=== PATIENT | female | born 1940 | race Caucasian/White ===

== ENCOUNTER 2020-04-13 10:33 | Outpatient (REF) | payer MEDICARE, SELFPAY ==
[2020-04-13 14:41] LABS: Thyroid Stimulating Hormone 3.29 mIU/mL (0.32-4.0)
== END 2020-04-13 10:34 | disposition home or self-care (01) ==
LOC: HO.MAMMO 10:33
PROVIDERS: PCP Internal Medicine; Visit Provider Internal Medicine
DX: E03.9 Hypothyroidism, unspecified (principal)
CPT/HCPCS: 84443

== ENCOUNTER 2020-07-30 08:51 | Outpatient (REF) | payer MEDICARE, SELFPAY ==
[2020-07-30 11:22] LABS: MANUAL DIFF FLAG NO
[2020-07-30 11:32] LABS: Glucose Urine UA NEG (NEG); Leukocyte Esterase Urine 1+ (NEG); Nitrite Urine NEG (NEG); PH 5.5 (5.0-8.0); Specific Gravity - Urine 1.015 (1.005-1.025); Urine Blood TRACE (NEG); Urine Ketones NEG (NEG); Urine Protein NEG (NEG-TRACE)
[2020-07-30 11:34] LABS: Appearance Urine HAZY; Color Urine STRAW
[2020-07-30 11:35] LABS: Basophils Percent Auto 0.3 % (0-2); Eosinophils Absolute Auto 0.2 X10*3/uL (0.0-0.4); Eosinophils Percent Auto 2.6 % (0-4); Hematocrit 36.8 % (37-47); Hemoglobin 12.4 g/dl (12.0-16.0); Imm Gran Abs Auto 0.02 X10*3/uL (0.00-0.03); Imm Gran Pct Auto 0.3 % (0.0-0.4); Lymphocytes Absolute Auto 1.9 X10*3/uL (1.2-4.9); Mean Corpuscular HGB Conc 33.7 g/dl (31.0-35.0); Mean Corpuscular Hemoglobin 32.4 pg (27.0-33.0); Mean Corpuscular Volume 96.1 fL (80-98); Mean Platelet Volume 12.1 fL (9.4-12.3); Monocytes Absolute Auto 0.6 X10*3/uL (0.1-1.2); Monocytes Percent Auto 8.9 % (2-11); Neutrophils Absolute Auto 4.3 X10*3/uL (2.0-8.3); Neutrophils Percent Auto 60.9 % (45-73); Platelet Count 192 X10*3/uL (160-400); Red Blood Count 3.83 X10*6/uL (4.20-5.50)
[2020-07-30 12:09] LABS: Alanine Aminotransferase < 6 U/L (0-31); Albumin Level 4.4 g/dL (3.5-5.0); Alkaline Phosphatase 80 U/L (39-117); Anion Gap 15 (12-20); Aspartate Amino Transferase 12 U/L (5-31); Bacteria Urine TRACE /LPF; Bilirubin Total 0.4 mg/dL (0.0-1.0); Blood Urea Nitrogen 33 mg/dL (9-16); Calcium 9.4 mg/dL (8.4-10.2); Carbon Dioxide 25 mmol/L (22-29); Chloride 104 mmol/L (96-108); Cholesterol 215 mg/dL; Estimated Glomerular Filt Rate 42; Glucose Fasting 102 mg/dL (60-99); HDL Cholesterol 48 mg/dL; LDL Cholesterol Calculated 144 mg/dl; Potassium 4.6 mmol/L (3.3-5.1); RBC Urine 0-2 /HPF (0); Sodium 139 mmol/L (135-145); Squamous Epithelial Cell Urine 4+ /LPF; Total Protein 7.8 g/dL (6.5-8.0); Triglycerides 117 mg/dL
[2020-07-30 12:18] LABS: Thyroid Stimulating Hormone 3.79 uIU/mL (0.32-4.0); Vitamin D 25-OH Total 48.6 ng/mL (>30)
== END 2020-07-30 08:52 | disposition home or self-care (01) ==
LOC: HO.WFDLDS 08:51
PROVIDERS: Visit Provider Internal Medicine
DX: E03.9 Hypothyroidism, unspecified (principal); R73.03 Prediabetes; I10 Essential (primary) hypertension; R79.89 Other specified abnormal findings of blood chemistry
CPT/HCPCS: 36415; 80053; 80061; 81001; 82306; 84443; 85025

== ENCOUNTER 2020-09-29 08:41 | Outpatient (REF) | payer MEDICARE, SELFPAY ==
[2020-09-29 11:14] LABS: Anion Gap 14 (12-20); Blood Urea Nitrogen 19 mg/dL (9-16); Calcium 8.4 mg/dL (8.4-10.2); Carbon Dioxide 29 mmol/L (22-29); Chloride 103 mmol/L (96-108); Estimated Glomerular Filt Rate 55; Phosphorus 3.2 mg/dL (2.7-4.5); Potassium 3.6 mmol/L (3.3-5.1); Sodium 142 mmol/L (135-145)
[2020-09-29 11:37] LABS: Glucose Urine UA NEG (NEG); Leukocyte Esterase Urine TRACE (NEG); Nitrite Urine NEG (NEG); PH 5.5 (5.0-8.0); UACC Culture Trigger YES; Urine Blood 1+ (NEG); Urine Ketones NEG (NEG); Urine Protein TRACE MG/DL (NEG-TRACE)
[2020-09-29 11:38] LABS: Renal w Reflex Lab Use Only Order verified
[2020-09-29 11:44] LABS: Appearance Urine HAZY; Color Urine YELLOW
[2020-09-29 12:01] LABS: Creatinine Urine 126.79 mg/dL; Microalbum/Creatinine Ratio Ur 89.1 ug/mg cr
[2020-09-29 12:20] LABS: Bacteria Urine 1+ /LPF; RBC Urine 0-2 /HPF (0); Squamous Epithelial Cell Urine 2+ /LPF; Uric Acid Crystals Urine 2+ /LPF
== END 2020-09-29 08:42 | disposition home or self-care (01) ==
LOC: HO.WFDLDS 08:41
PROVIDERS: Visit Provider Internal Medicine Nephrology
DX: I10 Essential (primary) hypertension (principal)
CPT/HCPCS: 36415; 80051; 81001; 81003; 82043; 82310; 82565; 84100; 84520; 87086

== ENCOUNTER 2020-10-23 08:54 | Outpatient (REF) | payer MEDICARE, SELFPAY ==
--- NOTE | ~2020-10-23 | MM_ITS ---
EXAMINATION: MM SCREENING DIGITAL BREAST TOMOSYNTHESIS, BILATERAL CLINICAL INFORMATION: Screening. Asymptomatic. Left breast cancer 2008. COMPARISON: Mammography: 02/06/2019, 01/22/2018, 01/20/2017 TECHNIQUE: Digital breast tomosynthesis is performed in both the craniocaudal and mediolateral oblique views along with computer-aided detection (CAD). Synthesized 2D images are generated from the tomosynthesis. FINDINGS: The breasts are heterogeneously dense, which may obscure small masses (ACR BI-RADS breast composition Category c). There is fine fibronodular parenchymal pattern. Parenchyma appears similar to prior studies. There are postsurgical changes again noted on left with reduced breast size left axillary clips and minor scarring. Neither breast shows interval mass or architectural abnormality or abnormal calcifications. There are scattered bilateral round and coarse and vascular calcifications again seen. No significant changes. MM/MM tomosynthesis screening BI IMPRESSION: No significant changes from prior studies. ASSESSMENT: BI-RADS 2: Benign RECOMMENDATION: Routine annual mammography screening. This patient's information was entered into a reminder system with a target due date for their next mammogram.
== END 2020-10-23 08:55 | disposition home or self-care (01) ==
LOC: HO.MAMMO 08:54
PROVIDERS: PCP Internal Medicine; Visit Provider Internal Medicine
DX: Z12.31 Encounter for screening mammogram for malignant neoplasm of breast (principal)
CPT/HCPCS: 77063; 77067

== ENCOUNTER 2021-03-24 15:53 | Emergency (ER) | payer MEDICARE, SELFPAY ==
[2021-03-24] VITALS (8 sets, daily range): BP systolic 161–200; BP diastolic 69–114; PULSE 64–85; RESP 16–18; TEMP 37.1; O2SAT 96–97; BMI 35.7
--- NOTE | ~2021-03-24 | XR_ITS ---
Indication: Trauma with back and hip pain EXAMINATION: Single view pelvis with 2 detailed views of the left hip. 3 views of the lumbar sacral spine. Views of the lumbar sacral spine show grade 1 anterolisthesis of L4 on L5. Loss of disc height at L4-L5. Degenerative changes in the posterior elements in the mid to lower lumbar region. Mild scoliosis convex right apex at L3. No acute compression injury. The single view of the pelvis demonstrates the SI joints to be patent. The femoral head contours are fairly smooth. The detailed imaging of the left hip shows degeneration along the greater trochanter. There is some joint space loss in the left hip but the femoral head contour is smooth. No acute fracture or dislocation. XR/XR lumbar spine 2-3V IMPRESSION: No acute finding. Moderate degeneration in the lumbar sacral spine. Degenerative change in left hip.
--- NOTE | ~2021-03-24 | XR_ITS ---
Indication: Trauma with back and hip pain EXAMINATION: Single view pelvis with 2 detailed views of the left hip. 3 views of the lumbar sacral spine. Views of the lumbar sacral spine show grade 1 anterolisthesis of L4 on L5. Loss of disc height at L4-L5. Degenerative changes in the posterior elements in the mid to lower lumbar region. Mild scoliosis convex right apex at L3. No acute compression injury. The single view of the pelvis demonstrates the SI joints to be patent. The femoral head contours are fairly smooth. The detailed imaging of the left hip shows degeneration along the greater trochanter. There is some joint space loss in the left hip but the femoral head contour is smooth. No acute fracture or dislocation. XR/XR hip LT w PEL1V IMPRESSION: No acute finding. Moderate degeneration in the lumbar sacral spine. Degenerative change in left hip.
--- NOTE | 2021-03-24 16:31 | ED_ITS ---
HPI - Back Pain/Injury General Chief Complaint: Back Pain/Injury Stated Complaint: back pain Time Seen by Provider: 03/24/21 16:10 Source: patient, family ( at bedside) and EMS Mode of arrival: EMS Limitations: no limitations History of Present Illness HPI Narrative: 80-year-old female with a past medical history of breast cancer receive radiation and chemo and lumpectomy and has been in remission, hyperten hailee, hypothyroidism and GERD presenting to the ED with complaints of atraumatic left lower back pain/left hip pain/buttocks pain that radiates to her left leg that started approximately 5-6 days ago after she took a shower. She reports that she does not believe she has had any injuries. She reports she might move faster than normal while going into the shower. She describes it as just a pain that suppresses her comes on suddenly with certain movements. She reports when the pain comes on suddenly she gets intermittent nausea. She reports it is worse with palpation or certain movements. She reports it is intermittent in nature. She was seen at an urgent care on 03/22/2021 and given Motrin and Tylenol. She reports she was just treated for gout to the left foot. She denies any falls or injuries that she can recall. She denies any fevers, chills, dizziness, headaches, change in vision, chest pain, shortness of breath, dyspnea on exertion, orthopnea, palpitations, abdominal pain, dysuria, hematuria, diarrhea or constipation, black or bloody stools, urinary incontinence or retention, inability to walk, or any other symptoms complaints or concerns at this time MD elicited complaint: back pain Pertinent past history: arthritis (Gout arthritis) Onset (ago): day(s) (5-6 days) Timing: intermittent Severity: moderate Similar Symptoms Previously: No Quality: other (She describes it as pain that surprises her) Location: left lower back (/left hip/buttock) Radiation: left upper leg Exacerbating factors: other (Certain movements and palpation to the site) Relieving factors: none Context: turning/twisting and bending Associated symptoms: denies other symptoms Treatments prior to arrival: other (Indomethacin and no symptomatic relief) Work related injury: No Related Data Home Medications Medication Instructions Recorded Confirmed amlodipine 2.5 mg tablet 2.5 mg PO DAILY 03/22/21 cholecalciferol (vitamin D3) 50 50 mcg PO DAILY 03/22/21 mcg (2,000 unit) capsule indomethacin 50 mg capsule 50 mg PO TID 03/22/21 levothyroxine 50 mcg tablet 50 mcg PO QAM 03/22/21 (Synthroid) lorazepam 0.5 mg tablet 0.5 mg PO DAILY PRN 03/22/21 losartan 100 mg tablet 100 mg PO DAILY 03/22/21 metoprolol succinate 25 mg 25 mg PO DAILY 03/22/21 tablet,extended release 24 hr omeprazole 20 mg capsule,delayed 20 mg PO DAILY 03/22/21 release Previous Rx's Medication Instructions Recorded cyclobenzaprine 10 mg tablet 10 mg PO BID PRN 10 Days #30 tab 03/22/21 cyclobenzaprine 10 mg tablet 10 mg PO Q8H #14 tab 03/24/21 lidocaine 5 % topical patch 1 patch TOPICAL DAILY #15 ea 03/24/21 (Lidoderm) Allergies Allergy/AdvReac Type Severity Reaction Status Date / Time No Known Allergies Allergy Mild NONE Verified 03/22/21 14:16 amoxicillin Allergy Unknown rash Uncoded 02/04/20 00:00 Bistolic AdvReac Unknown chest Uncoded 02/04/20 00:00 tightness Review of Systems Review of Systems: Constitutional : No trauma, No Weight loss, No Fever, No Chills, ENT/Mouth : No Hearing loss, No Ear Pain, No Nasal Congestion, No Sinus Pain, No Hoarseness, No sore throat, No Rhinorrhea, No Swallowing Difficulty Cardiovascular : No Chest Pain, No SOB Respiratory : No Cough, No Dyspnea Gastrointestinal : No Nausea, No Vomiting, No Diarrhea, No abdominal Pain, No Hematochezia, No Melena Genitourinary : No Dysuria, No Urinary Frequency, No Hematuria, No Urinary or Bowel Incontinence/retention Musculoskeletal : + Back pain, No neck pain, No joint stiffness, No joint swelling Skin : No Skin Lesions, No rash or signs of infection Neuro : No Weakness, No radiation, No Numbness, No Paresthesias, No headache, no loss of bowel or bladder incontinence, no saddle anesthesia, Focal weakness, No radiation Denies history of IV drug usage. Yes all other systems are reviewed and are negative PMFSH Past Medical History Attestation statement: The following information was validated with the patient. Medical History Breast cancer GERD (gastroesophageal reflux disease) HTN (hypertension) Hypothyroid Surgical History History of colonoscopy (04/2009) History of lumpectomy of left breast (12/20/07) Family History Family History Family/Other Breast cancer, Onset Age: 88 Social History Social History Patient Tobacco Use Status: Former Tobacco user Advance Directives: No Advance Directives Information Provided: Yes Physical Exam Vital Signs: Vital Signs: Last Vital Signs Temp 98.8 F 03/24/21 16:08 Pulse 77 03/24/21 18:26 Resp 16 03/24/21 18:26 BP 170/71 H 03/24/21 18:26 Pulse Ox 97 03/24/21 18:26 Body Mass Index 35.7 vital signs have been reviewed as normal and appeared to be correct. Blood pressure hypertensive 193/88. Heart rate normal. Respiration rate normal. Temperature normal. Oxygen saturation normal. Appearance: Alert. Oriented X3. No acute distress. Head: Normal external exam. Normocephalic. Atraumatic. No Wing signs noted. No raccoon eyes noted Eyes: PERRLA. EOMI. Conjunctiva and sclera normal. Eyelids normal. ENT: EAC normal. TM's Normal. Pharynx normal. Uvula midline. Moist mucous membranes. No trismus noted. No drooling noted. No muffled voice noted. Neck: Normal inspection. Neck supple. FROM. No adenopathy. Thyroid Normal. No meningeal signs. No neck mass noted. CVS: Normal heart rate and rhythm. Heart sound normal. No murmurs noted. Pulses normal throughout. Respiratory: No respiratory distress. Painless inspiration. Breath sounds normal. No wheezes/rales/rhonchi noted. Chest nontender. No accessory muscle usage noted or decreased air movement noted. Abdomen: Soft and nontender. Bowel sounds normal in all 4 quadrants. No distention noted. No organomegaly noted. No visible injury noted. Back: No CVA tenderness. Full range of motion noted. No obvious deformities, or edema. Mild para-spinal muscular tenderness from lumbar region to coccyx. Full ROM in back and lower extremities. 5/5 strength hip extension/flexion, ab duction, adduction. Mild Lumbar pain with hip flexion against resistance. Straight leg raise test negative on right; Straight leg raise test negative on left; Reflexes normal ankle and knee bilaterally; EHL motor strength normal bilaterally. No rashes/lesion/induration/fluctuance or signs infection noted. Skin: Skin warm and dry. Normal skin color. Normal skin turgor. No rashes/lesions/lacerations noted. Extremities: No lower extremity edema. No calf tenderness is noted. Extremities exhibit normal range of motion. Extremities nontender. Neuro: Oriented X 3. No motor deficit. No sensory deficit. Reflexes normal. Patient has a normal steady gait. Course Course Course Narrative: 16:40pm Pt c likely muscular pain, but could be herniated disc. Neuro exam shows no deficits. Not c/w AAA/epidural abscess/dissection. Patient does have a history of breast cancer although she has been in remission for years due to history and atraumatic left lower back pain will obtain an x-ray of lumbar/hip and pelvis x- ray. Provide 5 mg of Flexeril and Lidoderm patch and re-evaluate. No other high risk Hx (Incont, fever, immunosupp, recent surgery/LP, coag, signif trauma, wt loss, puls mass, TB, or IVDU) to warrant MRI/CT today. Not c/w Pyelo/UTI/kidney stone/spinal fx. Not cauda equina syndrome. Reevaluation(s) Reevaluation #1: - patient reports moderate symptomatic relief with the Flexeril and the lidocaine is requesting not to go home with. Although I noted that she had a elevated blood pressure she reports she is currently on 3 blood pressure medications which include losartan, amlodipine and metoprolol although she reports she took losartan and amlodipine should not take the metoprolol today. She reports the blood pressure is usually on the high side. She continues to deny any cardiac related complaints. She is able to ambulate without any difficulties. X-ray obtained of lumbar spine and left hip revealed degenerative changes otherwise no other acute processes. - therefore at this time will obtain an EKG. Provide 100 mg of p.o. labetalol then re-evaluate still awaiting UA at this time. Although patient denies any urinary related complaints. Will re-evaluate. Time: 17:45 Reevaluation #2: - UA revealed +1 protein and +1 blood it appears that patient always has blood in her urine otherwise no evidence of UTI. Patient's blood pressure came down to 170/71 without the labetalol. EKG is normal sinus rhythm with ventricular rate of 68 with LVH otherwise normal EKG no acute ischemic changes are noted. Therefore at this time will DC home with muscle relaxers and instructions return if any new or worsening symptoms to follow up with primary care provider. Patient and at bedside understand and agree this plan. Time: 18:44 [facility] - Back Pain/Injury Medical Records Attestation: I reviewed the patient's medical records. Lab Data Attestation: I reviewed the patient's lab results. Labs: Lab Results 03/24/21 Range/Units 18:08 Urine Color STRAW Urine Appearance CLEAR Urine pH 6.0 (5.0-8.0) Ur Specific [place] 1.010 (1.005-1.025) Urine Protein 1+ H (NEG-TRACE) MG/DL Urine Glucose (UA) NEG (NEG) MG/DL Urine Ketones 5 (NEG) MG/DL Urine Blood 1+ H (NEG) Urine Nitrite NEG (NEG) Ur Leukocyte Esterase NEG (NEG) Urine RBC 0-2 (0) /HPF Urine WBC 1-4 (0-4) /HPF Ur Squamous Epith Cells 1+ /LPF Urine Bacteria TRACE /LPF Discharge Plan Discharge Clinical Impression: Degenerative arthritis of lumbar spine, Degenerative arthritis of hip, Hypertension, Strain of lumbar paraspinal muscle Patient Disposition: Home, Self-Care Instructions: Osteoarthritis (ED), Low Back Strain (ED) Prescriptions: New cyclobenzaprine 10 mg tablet 10 mg PO Q8H Qty: 14 RF: 0 lidocaine [Lidoderm] 5 % adhesive patch,medicated 1 patch topical DAILY Qty: 15 RF: 0 No Action indomethacin 50 mg capsule 50 mg PO TID RF: 0 lorazepam 0.5 mg tablet 0.5 mg PO DAILY PRNRF: 0 metoprolol succinate 25 mg tablet extended release 24 hr 25 mg PO DAILY RF: 0 levothyroxine [Synthroid] 50 mcg tablet 50 mcg PO QAM RF: 0 losartan 100 mg tablet 100 mg PO DAILY RF: 0 amlodipine 2.5 mg tablet 2.5 mg PO DAILY RF: 0 cholecalciferol (vitamin D3) 50 mcg (2,000 unit) capsule 50 mcg PO DAILY RF: 0 omeprazole 20 mg capsule,delayed release(DR/EC) 20 mg PO DAILY RF: 0 cyclobenzaprine 10 mg tablet 10 mg PO BID PRN (Reason: muscle pain/spasm) 10 Days Qty: 30 RF: 0 Referrals: Jeffrey Knott MD [Physician] - 2 days Print Language: Pakistani
--- NOTE | 2021-03-24 17:09 | PC.NURSE ---
pt denies chest pain, sob. Abd is soft non-tender, no nvd or pain. Pt is a&ox4, pt answers questions appropriately, speech is clear,
[2021-03-24] MEDS: Cyclobenzaprine HCl 5 MG TABLET PO (17:10)
[2021-03-24] MEDS: Lidocaine 4 % Patch ADH..PATCH 1 PATCH TRANSDERMA (17:11)
--- NOTE | 2021-03-24 17:43 | ECG_ITS ---
Test Reason : BACK PAIN Blood Pressure : / mmHG Vent. Rate : 068 BPM Atrial Rate : 068 BPM P-R Int : 150 ms QRS Dur : 080 ms QT Int : 414 ms P-R-T Axes : 035 -20 004 degrees QTc Int : 440 ms Normal sinus rhythm Moderate voltage criteria for LVH, may be normal variant Nonspecific T wave abnormality Abnormal ECG When compared with ECG of 17-DEC-2007 14:39, Nonspecific T wave abnormality is now Present Referred By: Kemi Roe Electronically Signed By:JIMENA SMITH
[2021-03-24 18:14] LABS: Appearance Urine CLEAR; Color Urine STRAW; Glucose Urine UA NEG (NEG); Leukocyte Esterase Urine NEG (NEG); Nitrite Urine NEG (NEG); UACC Culture Trigger NO; Urine Blood 1+ (NEG); Urine Ketones 5 MG/DL (NEG); Urine Protein 1+ MG/DL (NEG-TRACE)
[2021-03-24 18:26] LABS: RBC Urine 0-2 /HPF (0)
[2021-03-24 18:27] LABS: Bacteria Urine TRACE /LPF; Squamous Epithelial Cell Urine 1+ /LPF
[2021-03-24] MEDS: Labetalol HCL 100 MG TABLET PO (19:02)
--- NOTE | 2021-03-24 19:04 | PC.NURSE ---
PT found to be hypertensive: 200/81 L, 188/88 R. PT medicated with labetalol per AUG. PT asymptomatic denies headache, dizziness, CP, SOB. PT aware of plan to recheck BP in appox 45 minutes.
== END 2021-03-24 19:47 | disposition home or self-care (01) ==
PROVIDERS: Physician Assistant Medical; Emergency Provider Internal Medicine
DX: S39.012A Strain of muscle, fascia and tendon of lower back, initial encounter (principal); M47.816 Spondylosis without myelopathy or radiculopathy, lumbar region; M16.9 Osteoarthritis of hip, unspecified; M51.36 Other intervertebral disc degeneration, lumbar region; M25.552 Pain in left hip; I10 Essential (primary) hypertension; Y93.9 Activity, unspecified; Y92.9 Unspecified place or not applicable; X58.XXXA Exposure to other specified factors, initial encounter; Y99.9 Unspecified external cause status; Z79.899 Other long term (current) drug therapy; Z87.891 Personal history of nicotine dependence
CPT/HCPCS: 72100; 73502; 81001; 93005; 99283; 99285

== ENCOUNTER 2021-03-29 15:32 | Outpatient (REF) | payer MEDICARE, SELFPAY ==
[2021-03-29 16:10] LABS: Blood Urea Nitrogen 29 mg/dL (9-16); Estimated Glomerular Filt Rate 40
== END 2021-03-29 15:33 | disposition home or self-care (01) ==
LOC: HO.LNP 15:32
PROVIDERS: Visit Provider Internal Medicine
DX: Z01.812 Encounter for preprocedural laboratory examination (principal)
CPT/HCPCS: 82565; 84520

== ENCOUNTER 2021-04-06 10:37 | Outpatient (REF) | payer MEDICARE, SELFPAY ==
--- NOTE | ~2021-04-06 | CT_ITS ---
EXAMINATION: CT LUMBAR SPINE WITHOUT CONTRAST CLINICAL INFORMATION: Breast cancer. ?lesion. Sciatica left side. COMPARISON: Most recent lumbar spine radiographs dated 03/24/2021. TECHNIQUE: Contiguous axial CT images of the lumbar spine were obtained without contrast. Multiplanar reformats were provided and reviewed. This CT examination was performed using dose optimization techniques as appropriate, variously including the following: *Automated exposure control *Adjustment of mA and/or kV according to patient size (this includes techniques or standardized protocols for targeted exams where dose is matched to indication/reason for exam; i.e. extremities or head) *Use of iterative reconstruction technique DLP: 1032 mGy-cm FINDINGS: The lumbar lordosis is maintained. Grade 1 anterolisthesis of L4 on L5 measuring approximately 0.4 cm in AP dimension. Findings are unchanged when compared to the prior radiographs. No acute fracture or subluxation. No loss of vertebral body height. Mild multilevel loss of intervertebral disc height with endplate osteophytes, most prominent at L4-L5. No lytic or blastic osseous lesion. [place]-la-vaqoof multilevel bilateral facet arthropathy. Partially visualized dilatation of the common bile duct and central hepatic biliary ducts. No pancreatic ductal dilatation. Scattered atherosclerotic calcifications. Partially visualized right adnexal cystic lesion with a layering fluid level measuring up to 5.8 x 6.2 cm. Findings are consistent with a complex cyst. L1-L2: Left subarticular disc protrusion which abuts the exiting left L1 nerve root. Eiqj-gj-zcorbifj bilateral neural foraminal stenosis. L2-L3: Broad-based disc osteophyte complex with a superimposed left subarticular and extraforaminal disc protrusion abutting the exiting left L2 nerve root. [id number] bilateral neural foraminal stenosis. L3-L4: Mild broad-based disc osteophyte complex with facet arthropathy and thickening of the ligamentum flavum causing mild central canal stenosis as well as moderate bilateral neural foraminal stenosis. L4-L5: Uncovering of the intervertebral disc with a broad-based disc bulge, bilateral facet arthropathy, and thickening of the ligamentum flavum causing mild central canal stenosis as well as mild bilateral neural foraminal stenosis. L5-S1: Broad-based disc osteophyte complex, asymmetric to the right, with bilateral facet arthropathy and minimal bilateral neural foraminal stenosis. CT/CT lumbar spine w con IMPRESSION: 1. Grade 1 anterolisthesis of L4 on L5 with degenerative disc disease and a broad-based disc bulge as well as prominent bilateral facet arthropathy and thickening of the ligamentum flavum causing mild central canal stenosis and mild bilateral neural foraminal stenosis. 2. Left subarticular disc intrusion at L1-L2 which abuts the exiting left L1 nerve root. Nclr-bo-lylxmztx bilateral neural foraminal stenosis. 3. Broad-based disc osteophyte complex at L2-L3 with a left subarticular/extraforaminal disc protrusion abutting the exiting left L2 nerve root. Jmvj-fw-cccbnqcr bilateral neural foraminal stenosis. 4. Broad-based disc osteophyte complex at L3-L4 with bilateral facet arthropathy and thickening of the ligamentum flavum causing mild central canal and moderate bilateral neural foraminal stenosis. 5. Partially visualized dilatation of the common bile duct and central intrahepatic biliary ducts. A distal duct obstruction could be considered in the appropriate clinical setting and right upper quadrant ultrasound and/or MRCP/ERCP could help further evaluate. 6. Partially visualized complex cyst within the right adnexa measuring up to 6.2 cm. Gynecological ultrasound and consultation could help further evaluate.
== END 2021-04-06 10:38 | disposition home or self-care (01) ==
LOC: HO.CT 10:37
PROVIDERS: Visit Provider Internal Medicine
DX: M54.32 Sciatica, left side (principal); Z85.3 Personal history of malignant neoplasm of breast
CPT/HCPCS: 72132; Q9967

== ENCOUNTER 2021-04-22 10:26 | Outpatient (REF) | payer MEDICARE, SELFPAY ==
--- NOTE | ~2021-04-22 | US_ITS ---
EXAMINATION: US PELVIC AND TRANSVAGINAL CLINICAL INFORMATION: Ovarian cyst. COMPARISON: Previous lumbar spine CT March 2021 TECHNIQUE: Ultrasound of the pelvis is performed using both transabdominal and transvaginal transducers along with Doppler. Transvaginal imaging is performed due to inadequate visualization transabdominally. FINDINGS: The uterus is retroverted and measures 5 x 2 x 3 cm in dimension. No focal uterine lesion is seen. The endometrium is normal in thickness measuring 0.4 cm. The endometrium appears heterogeneous-appearing, and there is a small amount of fluid in the endometrial cavity. There are nabothian cysts in the cervix. The right ovary is enlarged and measures 6.7 x 6.4 x 6 cm, 134 mL volume. There is a 5.9 x 6.1 x 5.8 cm minimally complex cyst in the right ovary. This has several thin septations and one slightly thickened septation measuring maximum 0.5 cm in thickness. No color-flow is seen in the septation. Doppler flow the wall of the cyst was not performed. No solid component or mural nodule is seen. The left ovary is not seen. There is no fluid in the pelvis. US/US pelvic and transvaginal IMPRESSION: 5.9 x 6.1 x 5.8 cm slightly complex right ovarian cyst with several thin septations and single slightly thickened septation.
== END 2021-04-22 10:27 | disposition home or self-care (01) ==
LOC: HO.HMGCX 10:26
PROVIDERS: PCP Internal Medicine; Visit Provider Internal Medicine
DX: N83.209 Unspecified ovarian cyst, unspecified side (principal)
CPT/HCPCS: 76830; 76856

== ENCOUNTER 2021-08-05 10:35 | Outpatient (REF) | payer MEDICARE, SELFPAY ==
[2021-08-05 10:39] LABS: MANUAL DIFF FLAG NO
[2021-08-05 11:59] LABS: Basophils Percent Auto 0.2 % (0-2); Eosinophils Absolute Auto 0.2 X10*3/uL (0.0-0.4); Eosinophils Percent Auto 2.2 % (0-4); Hematocrit 38.9 % (37.0-47.0); Hemoglobin 13.1 g/dl (12.0-16.0); Imm Gran Abs Auto 0.03 X10*3/uL (0.00-0.03); Imm Gran Pct Auto 0.4 % (0.0-0.4); Lymphocytes Absolute Auto 2.1 X10*3/uL (1.2-4.9); Lymphocytes Percent Auto 25.6 % (20-40); Mean Corpuscular HGB Conc 33.7 g/dl (31.0-35.0); Mean Corpuscular Hemoglobin 31.6 pg (27.0-33.0); Mean Platelet Volume 11.9 fL (9.4-12.3); Monocytes Absolute Auto 0.7 X10*3/uL (0.1-1.2); Monocytes Percent Auto 8.5 % (2-11); Neutrophils Absolute Auto 5.1 x10*3/uL (2.0-8.3); Neutrophils Percent Auto 63.1 % (45-73); Platelet Count 205 X10*3/uL (160-400); Red Blood Count 4.14 X10*6/uL (4.20-5.50); Red Cell Distribution Width 11.9 % (11.0-16.0)
[2021-08-05 12:12] LABS: Estimated Average Glucose 103 mg/dL; Hemoglobin A1c % 5.2 %
[2021-08-05 12:14] LABS: Appearance Urine HAZY; Color Urine YELLOW; Glucose Urine UA NEG (NEG); Leukocyte Esterase Urine 2+ (NEG); Nitrite Urine NEG (NEG); Specific Gravity - Urine <= 1.005 (1.005-1.025); Urine Blood 1+ (NEG); Urine Ketones NEG (NEG); Urine Protein NEG (NEG-TRACE)
[2021-08-05 12:22] LABS: Alanine Aminotransferase < 6 U/L (0-31); Alkaline Phosphatase 70 U/L (39-117); Anion Gap 12 (12-20); Aspartate Amino Transferase 13 U/L (5-31); Bilirubin Total 0.6 mg/dL (0.0-1.0); Blood Urea Nitrogen 16 mg/dL (9-16); Calcium 9.3 mg/dL (8.4-10.2); Carbon Dioxide 27 mmol/L (22-29); Chloride 103 mmol/L (96-108); Estimated Glomerular Filt Rate 59; Glucose Fasting 98 mg/dL (60-99); Potassium 3.9 mmol/L (3.3-5.1); Sodium 138 mmol/L (135-145); Total Protein 7.5 g/dL (6.5-8.0)
[2021-08-05 12:39] LABS: Bacteria Urine 1+ /LPF; RBC Urine 0 /HPF (0); Squamous Epithelial Cell Urine 2+ /LPF; TSH reflex Free T4 9.18 uIU/mL (0.32-4.0)
[2021-08-05 12:40] LABS: Mucus Urine 1+ /LPF
[2021-08-05 13:32] LABS: Creatinine Urine 97.13 mg/dL; Microalbum/Creatinine Ratio Ur 85.4 ug/mg cr
== END 2021-08-05 10:36 | disposition home or self-care (01) ==
LOC: HO.LNP 10:35
PROVIDERS: Visit Provider Internal Medicine
DX: I10 Essential (primary) hypertension (principal); R73.03 Prediabetes; E03.9 Hypothyroidism, unspecified; R79.9 Abnormal finding of blood chemistry, unspecified
CPT/HCPCS: 80053; 81001; 81003; 82043; 83036; 84439; 84443; 85025

== ENCOUNTER 2021-08-26 09:50 | Outpatient (REF) | payer MEDICARE, SELFPAY ==
[2021-08-26 12:35] LABS: Creatinine Urine 106.18 mg/dL
[2021-08-26 12:47] LABS: Anion Gap 13 (12-20); Blood Urea Nitrogen 19 mg/dL (9-16); Calcium 9.7 mg/dL (8.4-10.2); Carbon Dioxide 27 mmol/L (22-29); Chloride 102 mmol/L (96-108); Estimated Glomerular Filt Rate > 60; Sodium 138 mmol/L (135-145)
== END 2021-08-26 09:51 | disposition home or self-care (01) ==
LOC: HO.WFDLDS 09:50
PROVIDERS: Visit Provider Internal Medicine Nephrology
DX: I10 Essential (primary) hypertension (principal)
CPT/HCPCS: 36415; 80051; 82310; 82565; 84520

== ENCOUNTER 2021-11-09 10:52 | Outpatient (REF) | payer MEDICARE, SELFPAY ==
[2021-11-09 11:48] LABS: TSH reflex Free T4 0.36 uIU/mL (0.32-4.0)
== END 2021-11-09 10:53 | disposition home or self-care (01) ==
LOC: HO.LNP 10:52
PROVIDERS: PCP Internal Medicine; Visit Provider Internal Medicine
DX: E03.9 Hypothyroidism, unspecified (principal)
CPT/HCPCS: 84443

== ENCOUNTER 2022-02-18 12:46 | Outpatient (REF) | payer MEDICARE, SELFPAY ==
--- NOTE | ~2022-02-18 | MM_ITS ---
EXAMINATION: BONE DENSITOMETRY CLINICAL INDICATION: Osteopenia. COMPARISON: Previous BD dated 02/18/2012 and baseline BD dated 03/10/2008. TECHNIQUE: Using a [employer] DXA System (software version: 13.1) manufactured by [employer], dual-energy x-ray absorptiometry was performed of the lumbar spine and left hip. The images are of good technical quality. Summary results are attached. FINDINGS: AP SPINE L1-L4: Current: BMD 0.985 g/cm2, Z-score -0.3, T-score -1.6, osteopenia, 4.8% decrease from previous, 8.0% decrease from baseline (<5% change is not significant). Prior: BMD 1.035 g/cm2. Baseline: BMD 1.071 g/cm2. LEFT FEMUR, NECK: Current: BMD 0.736 g/cm2, Z-score -0.3, T-score -2.2, osteopenia. Prior: BMD 0.740 g/cm2. Baseline: BMD 0.889 g/cm2. LEFT FEMUR, TOTAL: Current: BMD 0.759 g/cm2, Z-score -0.2, T-score -2.0, osteopenia, 3.2% decrease from previous, 21.1% decrease from baseline (<5% change is not significant). Prior: BMD 0.784 g/cm2. Baseline: BMD 0.962 g/cm2. IDENTIFIED RISK FACTORS: Menopause, height loss. HISTORY OF FRACTURE: None listed. MEDICATIONS: Vitamin D. MM/XR DEXA axial skeleton IMPRESSION: 1. DIAGNOSIS: Osteopenia based on the lowest T-score value of -2.2 in the femoral neck applying World Health Organization criteria. 2. 10-YEAR FRACTURE RISK PREDICTION, FRAX: Major osteoporotic fracture (clinical spine, forearm, hip or shoulder) 15.4%. Hip fracture 4.8%. 3. Treatment Recommendations: NOF guidelines recommend consideration for treatment in postmenopausal women and men age 50 and older presenting with the following: -A hip or vertebral (clinical or morphometric) fracture. -T-score less than or equal to -2.5 at the femoral neck or spine after appropriate evaluation to exclude secondary causes. -Low bone mass at the hip or spine and a 10-year fracture probability by FRAX of greater than or equal to 3% for hip fracture or greater than or equal to 20% for major osteoporotic fracture based on the [place] adapted WHO algorithm. 4. Other Recommendations: All treatment decisions require clinical judgment and consideration of individual patient factors, including patient preferences, comorbidities, previous drug use, risk factors not captured in the FRAX model (e.g. frailty, falls, vitamin D deficiency, increased bone turnover, interval significant decline in bone density) and possible under or overestimation of fracture risk by FRAX. Additional medical evaluation for secondary cause of low bone mineral density may be appropriate. FUTURE SCAN RECOMMENDATION: People with diagnosed cases of osteoporosis or at high risk for fracture should have regular bone mineral density tests. For patients eligible for Medicare, routine testing is allowed once every 2 years. The testing frequency can be increased to one year for patients who have rapidly progressing disease, those who are receiving or discontinuing medical therapy to restore bone mass, or have additional risk factors.
== END 2022-02-18 12:47 | disposition home or self-care (01) ==
LOC: HO.MAMMO 12:46
PROVIDERS: PCP Internal Medicine; Visit Provider Internal Medicine
DX: Z13.820 Encounter for screening for osteoporosis (principal); Z78.0 Asymptomatic menopausal state; M85.80 Other specified disorders of bone density and structure, unspecified site
CPT/HCPCS: 77080

== ENCOUNTER 2022-08-09 12:37 | Outpatient (REF) | payer MEDICARE, SELFPAY ==
[2022-08-09 12:40] LABS: MANUAL DIFF FLAG NO
[2022-08-09 13:12] LABS: Basophils Percent Auto 0.5 % (0-2); Eosinophils Absolute Auto 0.1 X10*3/uL (0.0-0.4); Eosinophils Percent Auto 2.2 % (0-4); Hematocrit 38.3 % (37.0-47.0); Hemoglobin 12.9 g/dl (12.0-16.0); Imm Gran Abs Auto 0.03 X10*3/uL (0.00-0.03); Imm Gran Pct Auto 0.5 % (0.0-0.4); Lymphocytes Absolute Auto 1.7 X10*3/uL (1.2-4.9); Lymphocytes Percent Auto 26.8 % (20-40); Mean Corpuscular HGB Conc 33.7 g/dl (31.0-35.0); Mean Corpuscular Hemoglobin 31.2 pg (27.0-33.0); Mean Corpuscular Volume 92.5 fL (80.0-98.0); Mean Platelet Volume 12.2 fL (9.4-12.3); Monocytes Absolute Auto 0.5 X10*3/uL (0.1-1.2); Monocytes Percent Auto 8.3 % (2-11); Neutrophils Absolute Auto 3.9 x10*3/uL (2.0-8.3); Neutrophils Percent Auto 61.7 % (45-73); Platelet Count 201 X10*3/uL (160-400); Red Blood Count 4.14 X10*6/uL (4.20-5.50); Red Cell Distribution Width 12.1 % (11.0-16.0); White Blood Count 6.4 X10*3/uL (4.8-10.8)
[2022-08-09 13:58] LABS: Alanine Aminotransferase 8 U/L (0-31); Alkaline Phosphatase 82 U/L (39-117); Anion Gap 14 (12-20); Aspartate Amino Transferase 14 U/L (5-31); Bilirubin Total 0.6 mg/dL (0.0-1.0); Blood Urea Nitrogen 16 mg/dL (9-16); Calcium 8.8 mg/dL (8.4-10.2); Carbon Dioxide 26 mmol/L (22-29); Chloride 104 mmol/L (96-108); Cholesterol 198 mg/dL; Estimated Glomerular Filt Rate > 60; Glucose Fasting 105 mg/dL (60-99); HDL Cholesterol 49 mg/dL; LDL Cholesterol Calculated 123 mg/dl; Potassium 3.4 mmol/L (3.3-5.1); Sodium 141 mmol/L (135-145); Total Protein 7.1 g/dL (6.5-8.0); Triglycerides 132 mg/dL
[2022-08-09 14:08] LABS: Estimated Average Glucose 97 mg/dL
[2022-08-09 14:12] LABS: TSH reflex Free T4 0.22 uIU/mL (0.32-4.0)
[2022-08-09 15:02] LABS: Free T4 (Free Thyroxine) 1.34 ng/dL (0.71-1.85)
== END 2022-08-09 12:38 | disposition home or self-care (01) ==
LOC: HO.LNP 12:37
PROVIDERS: Visit Provider Internal Medicine
DX: I10 Essential (primary) hypertension (principal); R73.03 Prediabetes; E03.9 Hypothyroidism, unspecified; R79.9 Abnormal finding of blood chemistry, unspecified
CPT/HCPCS: 80053; 80061; 83036; 84439; 84443; 85025

== ENCOUNTER 2022-08-30 15:46 | Outpatient (REF) | payer MEDICARE, SELFPAY ==
[2022-08-30 17:01] LABS: Appearance Urine Clear; Color Urine Yellow; Glucose Urine UA Negative (Negative); Leukocyte Esterase Urine Trace (Negative); Nitrite Urine Negative (Negative); UMIC TRIGGER UACC YES; Urine Blood Trace (Negative); Urine Ketones Negative (Negative); Urine Protein Negative (Neg-Trace)
[2022-08-30 17:04] LABS: Bacteria Urine None Seen (None Seen); Hyaline Casts Urine 0-2 /LPF (0-2); RBC Urine 0-2 /HPF (0-2); WBC Urine 0-5 /HPF (0-5)
[2022-08-30 17:26] LABS: Creatinine Urine 35.97 mg/dL; Microalbum/Creatinine Ratio Ur 225.1 ug/mg cr
== END 2022-08-30 15:47 | disposition home or self-care (01) ==
LOC: HO.LNP 15:46
PROVIDERS: PCP Internal Medicine; Visit Provider Internal Medicine
DX: I10 Essential (primary) hypertension (principal); R73.09 Other abnormal glucose
CPT/HCPCS: 81001; 82043

== ENCOUNTER 2022-09-23 10:54 | Outpatient (REF) | payer MEDICARE, SELFPAY ==
--- NOTE | ~2022-09-23 | US_ITS ---
EXAMINATION: US PELVIS AND TRANSVAGINAL CLINICAL INFORMATION: Cysts in the ovary. COMPARISON: None available. TECHNIQUE: Ultrasound of the pelvis is performed using both transabdominal and transvaginal transducers along with Doppler. Transvaginal imaging is performed due to inadequate visualization transabdominally. FINDINGS: Uterus: The uterus is retroverted and measures 5.2 x 2.2 x 3.6 cm The double wall endometrial thickness is 0.4 cm. The uterus is smooth in contour and has normal myometrial echogenicity. No visible fibroid. Small nabothian cysts seen in the cervix with the largest measuring 1.5 x 0.6 x 1.4 cm. Minimal fluid is seen within the endometrial canal. Adnexa: Both ovaries are visualized. There is normal color flow to the adnexa. There is no ovarian torsion. There is no pelvic ascites or fluid collection. Right ovary measures 5.7 x 5.8 5.5 cm and volume 95.1 mL. There is anechoic cyst measuring 5.3 x 5.3 x 5.0 cm without septation. Previously it measured 5.9 x 6.1 x 5.8 cm. Left ovary is not visualized. US/US pelvic and transvaginal IMPRESSION: 1. Simple cyst right ovary. 2. Left ovary is not seen. 3. Small nabothian cysts in the cervix. 4. The uterus is unremarkable. There is minimal fluid seen within the endometrial canal.
== END 2022-09-23 10:55 | disposition home or self-care (01) ==
LOC: HO.US 10:54
PROVIDERS: PCP Internal Medicine; Visit Provider Internal Medicine
DX: N83.209 Unspecified ovarian cyst, unspecified side (principal)
CPT/HCPCS: 76830; 76856

== ENCOUNTER 2022-10-17 10:50 | Outpatient (REF) | payer MEDICARE, SELFPAY ==
--- NOTE | ~2022-10-17 | MM_ITS ---
EXAMINATION: MM SCREENING DIGITAL BREAST TOMOSYNTHESIS, BILATERAL CLINICAL INFORMATION: Screening. Asymptomatic. Status post left lumpectomy. COMPARISON: Mammography: 10/23/2020 and studies dating back to 01/15/2016. TECHNIQUE: Digital breast tomosynthesis is performed in both the craniocaudal and mediolateral oblique views along with computer-aided detection (CAD). Synthesized 2D images are generated from the tomosynthesis. FINDINGS: The breasts are heterogeneously dense, which may obscure small masses (ACR BI-RADS breast composition Category c). Postsurgical changes noted within the left breast with no new suspicious dominant mass or more suspicious grouping of calcifications identified. 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 There is another grouping of calcifications seen on the lateral oblique projection anterior inferior aspect, which I cannot definitely identify on craniocaudal view and which may be vascular in nature. There is a third grouping of calcifications about the upper outer aspect of the right breast. Spot magnification views are recommended. MM/MM tomosynthesis screening BI IMPRESSION: Right breast increasing groupings of calcifications for further evaluation as described with spot magnification views. ASSESSMENT: BI-RADS 0: Incomplete - Need Additional Imaging Evaluation RECOMMENDATION: 1. Additional views of the right breast. 2. Targeted ultrasound if warranted after review of the additional views. 3. Radiology department staff will contact the patient for additional imaging. This patient's information was entered into a reminder system with a target due date for their next mammogram.
== END 2022-10-17 10:51 | disposition home or self-care (01) ==
LOC: HO.MAMMO 10:50
PROVIDERS: PCP Internal Medicine; Visit Provider Internal Medicine
DX: Z12.31 Encounter for screening mammogram for malignant neoplasm of breast (principal); Z85.3 Personal history of malignant neoplasm of breast
CPT/HCPCS: 77063; 77067

== ENCOUNTER 2022-10-21 08:49 | Outpatient (REF) | payer MEDICARE, SELFPAY ==
--- NOTE | ~2022-10-21 | MM_ITS ---
EXAMINATION: MM DIAGNOSTIC DIGITAL, RIGHT CLINICAL INFORMATION: Right breast calcifications. Status post left breast lumpectomy. COMPARISON: Mammography: 10/17/2022 and studies dating back to 11/14/2007 TECHNIQUE: Digital mammography is performed in the following views: Spot magnification views of the right breast in craniocaudal and 90 degree mediolateral views. FINDINGS: The breasts are heterogeneously dense, which may obscure small masses (ACR BI-RADS breast composition Category c). There are numerous grouped and scattered calcifications as well as vascular calcifications present. 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 Grouping of calcifications about the superior aspect of the right breast are tightly grouped and similar in appearance to study of 10/23/2020. Group of calcifications associated with questioned density about the more anteroinferior aspect. On one of the spot magnification CC views, there is a question of grouping of calcifications however, on the other views this is not evident and is likely related to the adjacent vascular calcifications. Results are discussed with the patient at time of visit. MM/MM added views RT IMPRESSION: Probable benign right breast calcifications for which 6 month follow-up study is recommended. ASSESSMENT: BI-RADS 3: Probably Benign RECOMMENDATION: Recommend 6 month follow-up diagnostic right breast mammogram with spot magnification views. This patient's information was entered into a reminder system with a target due date for their next mammogram.
== END 2022-10-21 08:50 | disposition home or self-care (01) ==
LOC: HO.MAMMO 08:49
PROVIDERS: Visit Provider Internal Medicine
DX: R92.1 Mammographic calcification found on diagnostic imaging of breast (principal)
CPT/HCPCS: 77065

== ENCOUNTER 2022-11-16 10:46 | Outpatient (REF) | payer MEDICARE, SELFPAY ==
[2022-11-16 14:13] LABS: Anion Gap 14 (12-20); Blood Urea Nitrogen 18 mg/dL (9-16); Calcium 9.1 mg/dL (8.4-10.2); Carbon Dioxide 24 mmol/L (22-29); Chloride 106 mmol/L (96-108); Estimated Glomerular Filt Rate > 60; Potassium 3.6 mmol/L (3.3-5.1); Sodium 140 mmol/L (135-145)
[2022-11-16 14:49] LABS: Renal w Reflex Lab Use Only Order verified
[2022-11-16 15:13] LABS: Creatinine Urine 108.76 mg/dL; Protein/Creatinine Ratio, Ur 0.51 (<0.2); Total Protein Urine Random 55 mg/dL (<12)
== END 2022-11-16 10:47 | disposition home or self-care (01) ==
LOC: HO.WFDLDS 10:46
PROVIDERS: Visit Provider Internal Medicine Nephrology
DX: I10 Essential (primary) hypertension (principal)
CPT/HCPCS: 36415; 80051; 82310; 82565; 84156; 84520

== ENCOUNTER 2022-12-01 11:21 | Outpatient (REF) | payer MEDICARE, SELFPAY ==
[2022-12-01 12:08] LABS: TSH reflex Free T4 0.56 uIU/mL (0.32-4.0)
== END 2022-12-01 11:22 | disposition home or self-care (01) ==
LOC: HO.LNP 11:21
PROVIDERS: Visit Provider Internal Medicine
DX: E03.9 Hypothyroidism, unspecified (principal)
CPT/HCPCS: 84443

== ENCOUNTER 2023-04-25 12:56 | Outpatient (REF) | payer MEDICARE, SELFPAY ==
--- NOTE | ~2023-04-25 | MM_ITS ---
EXAMINATION: MM DIAGNOSTIC DIGITAL BREAST TOMOSYNTHESIS, RIGHT CLINICAL INFORMATION: 6 month follow-up evaluation of calcifications, several groups, right breast. COMPARISON: Mammography: 10/17/2022, 10/13/2022, 10/23/2020, and dating back to 2017. TECHNIQUE: Digital breast tomosynthesis is performed in both the craniocaudal and mediolateral oblique views along with computer-aided detection (CAD). Synthesized 2D images are generated from the tomosynthesis. FINDINGS: The breasts are heterogeneously dense, which may obscure small masses (ACR BI-RADS breast composition Category c). Magnification views demonstrate 3 groups of distinct calcifications. -A group in the anterior upper outer quadrant (labeled group 1) is present with extremely fine punctate and minimally linear grouped calcifications, not appreciably changed from the prior exam and probably benign. -A similar group which is slightly more extensive is present in the mid upper right breast (labeled grouped 2), adjacent to a large dystrophic appearing calcification, also not significantly changed from the prior exam and probably benign. -An upper outer linear grouped in the mid one third of the right breast (labeled grouped 3) has a more classic benign appearance and is also probably benign and unchanged. -None of the above calcifications demonstrated aggressive changes, and should be followed in 6 months with standard magnification views. The right breast demonstrates no developing mass, or area of architectural distortion. There are vascular calcifications. There are skin lesions in the inferior posterior right breast. MM/MM tomosynthesis diagnostic RT IMPRESSION: There are no significant changes from prior study. No findings suspicious for malignancy in the right breast. 3 groups of probably benign calcifications in the right breast should be followed in 6 months with standard diagnostic mammographic magnification views. ASSESSMENT: BI-RADS BI-RADS 3 - Probably benign finding(s) - 6 month follow-up suggested RECOMMENDATION: 6 Month F/U Results were provided to the patient at time of visit by the technologist. This patient's information was entered into a reminder system with a target due date for their next mammogram.
== END 2023-04-25 12:57 | disposition home or self-care (01) ==
LOC: HO.MAMMO 12:56
PROVIDERS: PCP Internal Medicine; Visit Provider Internal Medicine
DX: R92.1 Mammographic calcification found on diagnostic imaging of breast (principal)
CPT/HCPCS: 77061; 77065

== ENCOUNTER → 2023-04-25 13:00 | Outpatient (BNV) | payer MEDICARE, SELFPAY | PROVIDERS: PCP Internal Medicine; Visit Provider Radiology Diagnostic Radiology | DX: R92.1 Mammographic calcification found on diagnostic imaging of breast (principal) | CPT/HCPCS: 77061; 77065; G0279 ==

== ENCOUNTER 2023-08-28 11:03 | Outpatient (REF) | payer MEDICARE, SELFPAY ==
[2023-08-28 11:07] LABS: MANUAL DIFF FLAG NO
[2023-08-28 11:42] LABS: Basophils Percent Auto 0.3 % (0-2); Eosinophils Absolute Auto 0.1 X10*3/uL (0.0-0.4); Eosinophils Percent Auto 1.6 % (0-4); Imm Gran Abs Auto 0.02 X10*3/uL (0.00-0.03); Imm Gran Pct Auto 0.3 % (0.0-0.4); Lymphocytes Absolute Auto 1.6 X10*3/uL (1.2-4.9); Lymphocytes Percent Auto 21.7 % (20-40); Mean Corpuscular HGB Conc 33.3 g/dl (31.0-35.0); Mean Corpuscular Volume 93.1 fL (80.0-98.0); Mean Platelet Volume 12.6 fL (9.4-12.3); Monocytes Absolute Auto 0.6 X10*3/uL (0.1-1.2); Monocytes Percent Auto 7.9 % (2-11); Neutrophils Absolute Auto 5.1 x10*3/uL (2.0-8.3); Neutrophils Percent Auto 68.2 % (45-73); Platelet Count 197 X10*3/uL (160-400); Red Blood Count 4.51 X10*6/uL (4.20-5.50); Red Cell Distribution Width 12.3 % (11.0-16.0); White Blood Count 7.5 X10*3/uL (4.8-10.8)
[2023-08-28 11:49] LABS: Estimated Average Glucose 103 mg/dL; Hemoglobin A1c % 5.2 % (<6.0)
[2023-08-28 11:59] LABS: Alanine Aminotransferase 9 U/L (0-31); Albumin Level 4.1 g/dL (3.5-5.0); Alkaline Phosphatase 83 U/L (39-117); Anion Gap 15 (12-20); Aspartate Amino Transferase 16 U/L (5-31); Bilirubin Total 0.6 mg/dL (0.0-1.0); Blood Urea Nitrogen 18 mg/dL (9-16); Calcium 9.8 mg/dL (8.4-10.2); Carbon Dioxide 28 mmol/L (22-29); Chloride 103 mmol/L (96-108); Cholesterol 223 mg/dL (<200); Estimated Glomerular Filt Rate 57; Glucose Fasting 106 mg/dL (60-99); HDL Cholesterol 53 mg/dL (>40); LDL Cholesterol Calculated 153 mg/dL (<100); Potassium 3.9 mmol/L (3.3-5.1); Sodium 142 mmol/L (135-145); Total Protein 8.1 g/dL (6.5-8.0); Triglycerides 89 mg/dL (<150)
== END 2023-08-28 11:04 | disposition home or self-care (01) ==
LOC: HO.LNP 11:03
PROVIDERS: Visit Provider Internal Medicine
DX: I10 Essential (primary) hypertension (principal); E03.9 Hypothyroidism, unspecified; R79.9 Abnormal finding of blood chemistry, unspecified
CPT/HCPCS: 80053; 80061; 83036; 84153; 85025

== ENCOUNTER 2023-11-10 12:56 | Outpatient (REF) | payer MEDICARE, SELFPAY ==
--- NOTE | ~2023-11-10 | MM_ITS ---
EXAMINATION: MM DIAGNOSTIC DIGITAL BREAST TOMOSYNTHESIS, BILATERAL CLINICAL INFORMATION: Six-month right breast calcification follow-up. Status post left breast lumpectomy. Patient due for bilateral screening. COMPARISON: Mammography: 04/25/2023, 10/17/2022 (BI-RADS 0), 10/13/2022, 10/23/2020, and dating back to 2017. TECHNIQUE: Digital breast tomosynthesis is performed in both the craniocaudal and mediolateral oblique views along with computer-aided detection (CAD). Synthesized 2D images are generated from the tomosynthesis. In addition, 2-D spot magnification views were obtained in the CC x2, and ML x3 projections. FINDINGS: The breasts are heterogeneously dense, which may obscure small masses (ACR BI-RADS breast composition Category c). Magnification views demonstrate 3 groups of distinct right breast calcifications: -A group in the anterior upper outer quadrant (labeled group 1) is present with extremely fine punctate and minimally linear grouped calcifications, not appreciably changed from the prior exams and remain probably benign. -A similar group which is slightly more extensive is present in the mid upper right breast (labeled grouped 2), adjacent to a large dystrophic appearing calcification, also not significantly changed from the prior exams and remain probably benign. -An upper outer linear grouped in the mid one third of the right breast (labeled grouped 3) has a more classic benign appearance and is also probably benign and unchanged. -A fourth group (labeled 4) just medial to the bifurcation of the calcified vessel was present in retrospect but extremely subtle and show no aggressive changes. The right breast demonstrates no developing mass, or area of architectural distortion. There are vascular calcifications. There are skin lesions in the inferior posterior right breast. The left breast demonstrates stable post lumpectomy changes upper outer quadrant. There are vascular and dystrophic macrocalcifications. No evidence of recurrent disease. There are surgical clips in the left axilla. No suspicious calcifications, developing masses, or new developing regions of architectural distortion. Mild trabecular thickening from treatment related changes is stable. The dense parenchymal pattern is stable. MM/MM tomosynthesis diagnostic BI IMPRESSION: -Benign findings both breasts not significantly changed from prior studies. No findings suspicious for malignancy. -4 groups of calcifications in the right breast are unchanged and suitable for one-year diagnostic follow-up magnification views. ASSESSMENT: BI-RADS BI-RADS 3 - Probably benign finding(s) - 12 month follow-up suggested RECOMMENDATION: 12 month diagnostic follow up Results were provided to the patient at time of visit by the technologist. This patient's information was entered into a reminder system with a target due date for their next mammogram.
== END 2023-11-10 12:57 | disposition home or self-care (01) ==
LOC: HO.MAMMO 12:56
PROVIDERS: PCP Internal Medicine; Visit Provider Internal Medicine
DX: R92.1 Mammographic calcification found on diagnostic imaging of breast (principal)
CPT/HCPCS: 77062; 77066

== ENCOUNTER → 2023-11-10 13:00 | Outpatient (BNV) | payer MEDICARE, SELFPAY | PROVIDERS: PCP Internal Medicine; Visit Provider Radiology Diagnostic Radiology | DX: R92.1 Mammographic calcification found on diagnostic imaging of breast (principal) | CPT/HCPCS: 77066; G0279 ==

== ENCOUNTER 2023-11-15 13:48 | Outpatient (AMB) | payer MEDICARE, SELFPAY ==
--- NOTE | 2023-11-15 13:58 | HO.NEPHOV ---
Vital Signs 11/15/23 14:01 Height 5 ft Weight 175 lb 2 oz BMI 34.2 BP 130/80 Blood Pressure Location Rt brachial Position Sitting Pulse 79 Pulse Source Pulse Oximeter Pulse Oximetry (%) 94 Oxygen Delivery Method Room Air Intake Visit Reasons: Continuing care from [facility]/ Unable to reach Stockfeed Miller Required: No Accompanied by: Spouse Allergies amoxicillin Allergy (Verified 11/15/23 14:03) Rash Bistolic Adverse Reaction (Unknown, Uncoded 02/04/20 00:00) chest tightness HPI Comments Details: I had the pleasure of seeing Jacqueline in follow-up of her hypertension. Her blood pressure is currently well controlled at home. She has no orthostatic symptoms. She denies any chest pain, shortness of breath, paroxysmal nocturnal dyspnea, orthopnea, pedal edema. Her thyroid medications have been adjusted by her primary care physician. She otherwise is feeling well. FORMERLY [facility] Medical History Breast cancer GERD (gastroesophageal reflux disease) HTN (hypertension) Hypothyroid Surgical History History of lumpectomy of left breast (12/20/07) History of colonoscopy (04/2009) Family History Family/Other Breast cancer, Onset Age: 87 Social History Patient Tobacco Use Status: Former Tobacco user Physical Exam Vital Signs: Last Vital Signs Pulse 79 11/15/23 14:01 BP 130/80 11/15/23 14:01 Pulse Ox 94 11/15/23 14:01 Oxygen Delivery Method Room Air 11/15/23 14:01 BMI result Body Mass Index 34.2 Const General: comfortable and no acute distress Orientation/consciousness: patient oriented x3 HEENT Head: Yes normocephalic Mouth: Normal oral and palatal mucosa present Eyes EOM: EOMs intact bilaterally Neck Neck: Yes supple Resp Auscultation: clear to auscultation bilaterally Cardio Jugular venous distension: no JVD Rate: regular rate GI Palpation (GI): Soft to palpation Auscultation: normal bowel sounds General: Yes no CVA tenderness Back/Spine/Pelvis Back: no CVA tenderness Skin General skin exam: no rashes or lesions noted Neuro General: patient oriented x3 and moves all extremities Extrem General: Yes no pedal edema Results Reviewed Nephrology Results: Hgb 14.0 g/dl (12.0-16.0) 08/28/23 WBC 7.5 X10*3/uL (4.8-10.8) 08/28/23 Plt Count 197 X10*3/uL (160-400) 08/28/23 Sodium 142 mmol/L (135-145) 08/28/23 Potassium 3.9 mmol/L (3.3-5.1) 08/28/23 Chloride 103 mmol/L (96-108) 08/28/23 Carbon Dioxide 28 mmol/L (22-29) 08/28/23 BUN 18 mg/dL (9-16) H 08/28/23 Creatinine 0.94 mg/dL (0.5-1.4) 08/28/23 Calcium 9.8 mg/dL (8.4-10.2) 08/28/23 Urine Protein Negative mg/dL (Neg-Trace) 08/30/22 Urine Creatinine 108.76 mg/dL 11/16/22 Protein/Creatinin Ratio 0.51 (<0.2) H 11/16/22 Assessment & Plan Assessment & Plan (1) HTN (hypertension): Code(s): I10 - Essential (primary) hypertension Category: Medical Qualifiers: Hypertension type: primary hypertension Qualified Code(s): I10 - Essential (primary) hypertension Plan Jacqueline has longstanding hypertension which is very well controlled on the current medication regimen. She is taking amlodipine, losartan and metoprolol. She is off hydrochlorothiazide. Her renal functions had been stable. She avoids nonsteroidal anti-inflammatories and maintain good hydration. She has no orthostatic hypotension. I did not make any medication changes today. I ordered follow-up blood work. Answered all questions. Follow-up appointment given. Orders: Orders Blood Urea Nitrogen Today I10 - Essential (primary) hypertension Creatinine Today I10 - Essential (primary) hypertension Electrolytes Today I10 - Essential (primary) hypertension Calcium Today I10 - Essential (primary) hypertension Coding Level of Care Code Est Pt Level 4 (63807) Diagnoses Primary hypertension I10 Hypertension type: primary hypertension
[2023-11-15 14:01] VITALS: BP 130/80; PULSE 79; O2SAT 94; BMI 34.2
== END 2023-11-15 14:30 | disposition home or self-care (01) ==
LOC: HO.HKA 13:51
PROVIDERS: PCP Internal Medicine; Visit Provider Internal Medicine Nephrology
DX: I10 Essential (primary) hypertension (principal)
CPT/HCPCS: 99214

== ENCOUNTER → 2023-11-15 13:51 | Outpatient (BNVA) | payer MEDICARE, SELFPAY | PROVIDERS: PCP Internal Medicine; Visit Provider Internal Medicine Nephrology | DX: I10 Essential (primary) hypertension (principal) | CPT/HCPCS: 99212 ==

== ENCOUNTER 2024-07-02 11:15 | Outpatient (REF) | payer MEDICARE, SELFPAY ==
--- OUTSIDE RECORDS SUMMARY | 2024-07-02 12:46 | XMS_ITS ---
Author Organization Jeffrey Knott MD Address [address] [place] [phone] Care Team Providers Care Swimming Coach Or Instructor Name Role Phone Jeffrey Knott Primary Care Provider [phone] REASON FOR VISIT Needs Synthroid MEDICATIONS Medication SIG (Take, Route, Fr equency, Duration) Notes Start Date End Date Status Synthroid 75 MCG TAKE 1 TABLET BY MARQUIS TH EVERY DAY IN THE MORNING ON EMPTY STOMACH Orally Once a day for 90 days Active Encounters Encounter Location Date Provider Diagnosis Jeffrey Knott MD [address] [facility] [address] [place] [phone] 06/11/2024 Jeffrey Knott PLAN OF TREATMENT Medication Medication Name Sig Start Date Stop Date Notes Synthroid 75 MCG TAKE 1 TABLET BY MARQUIS TH EVERY DAY IN THE MORNING ON EMPTY STOMACH Orally Once a day for 90 days Next Appt Details Provider Name:Jeffrey chin, 09/12/2024 07:00:00 AM, [address] [place] [address], [address], [phone], Provider Name:Jeffrey chin, 09/19/2024 11:00:00 AM, [address] [place] [address], [address], [phone],
--- OUTSIDE RECORDS SUMMARY | 2024-07-02 12:46 | XMS_ITS ---
Author Organization Jeffrey Knott MD Address [address] [place] [phone] Care Team Providers Care Director Personal Name Role Phone Jeffrey Knott Primary Care Provider REASON FOR VISIT refill MEDICATIONS Medication SIG (Take, Route, Frequency, Duration) Notes Start Date End Date Status Losartan Potassium 100 MG TAKE 1 TABLET BY MOUTH EVERY DAY Orally Once a day for 90 days Active Encounters Encounter Location Date Provider Diagnosis Jeffrey Knott MD [address] [facility] [address] [place] [phone] 07/02/2024 Jeffrey Knott PLAN OF TREATMENT Medication Medication Name Sig Start Date Stop Date Notes Losartan Potassium 100 MG TAKE 1 TABLET BY MOUTH EVERY DAY Orally Once a day for 90 days Next Appt Details Provider Name:Jeffrey chin, 09/12/2024 07:00:00 AM, [address] [place] [address], Suite [facility], [place], [place], [phone], Provider Name:Jeffrey chin, 09/19/2024 11:00:00 AM, [address] [place] [address], Suite [facility], [place], [place], [phone],
--- OUTSIDE RECORDS SUMMARY | 2024-07-02 12:46 | XMS_ITS ---
Author Organization Jeffrey Knott MD Address [address] [place] [phone] Care Team Providers Care Section Chief Name Role Phone Jeffrey Knott Primary Care Provider REASON FOR VISIT RF MEDICATIONS Medication SIG (Take, Route, Fr equency, Duration) Notes Start Date End Date Status Synthroid 75 MCG TAKE 1 TABLET BY MARQUIS TH EVERY DAY IN THE MORNING ON EMPTY STOMACH Orally Once a day for 90 days Active Encounters Encounter Location Date Provider Diagnosis Jeffrey Knott MD [address] [facility] [address] [place] [phone] 06/07/2024 Jeffrey Knott PLAN OF TREATMENT Medication Medication Name Sig Start Date Stop Date Notes Synthroid 75 MCG TAKE 1 TABLET BY MARQUIS TH EVERY DAY IN THE MORNING ON EMPTY STOMACH Orally Once a day for 90 days Next Appt Details Provider Name:Jeffrey chin, 09/12/2024 07:00:00 AM, [address] [place] [address], [address], [phone], Provider Name:Jeffrey chin, 09/19/2024 11:00:00 AM, [address] [place] [address], [address], [phone],
--- OUTSIDE RECORDS SUMMARY | 2024-07-02 12:46 | XMS_ITS | Patient Health Record ---
Author Organization Jeffrey Knott MD Address [address] [place], [place] [id number] Care Team Providers Care Water Vessel Captain Name Role Phone Jeffrey Knott Primary Care Provider ALLERGIES Allergen (clinical drug ingredient) Drug/Non Drug Allergy documented on EMR Reaction Allergy Type Onset Date Status lisinopril Lisinopril cough and diarrhea Drug Allergy Active RESULTS Component Value Reference Range Notes Complete Blood Count Auto Di ff Reviewed date:08/28/2023 04:51:18 PM Interpretation: Performing Lab:[facility], [address] [place] [id number] Notes/Report: White Blood Count 7.5 4.8-10.8 X10*3/uL Red Blood Count 4.51 4.20-5.50 X10*6/uL Hemoglobin 14.0 12.0-16.0 g/dl Hematocrit 42.0 37.0-47.0 % Mean Corpuscular Volume 93.1 80.0-98.0 fL Mean Corpuscular Hemoglobin 31.0 27.0-33.0 pg Mean Corpuscular HGB Conc 33.3 31.0-35.0 g/dl Red Cell Distribution Width 12.3 11.0-16.0 % Platelet Count 197 160-400 X10*3/uL Mean Platelet Volume 12.6 9.4-12.3 fL Neutrophils Percent Auto 68.2 45-73 % Imm Gran Pct Auto 0.3 0.0-0.4 % Lymphocytes Percent Auto 21.7 20-40 % Monocytes Percent Auto 7.9 2-11 % Eosinophils Percent Auto 1.6 0-4 % Basophils Percent Auto 0.3 0-2 % NRBC Pct Auto 0.0 0.0-0.2 /100WBC Neutrophils Absolute Auto 5.1 2.0-8.3 x10*3/u L Imm Gran Abs Auto 0.02 0.00-0.03 X10*3/uL Lymphocytes Absolute Auto 1.6 1.2-4.9 X10*3/u L Monocytes Absolute Auto 0.6 0.1-1.2 X10*3/uL Eosinophils Absolute Auto 0.1 0.0-0.4 X10*3/u L Basophils Absolute Auto 0.0 0.0-0.2 X10*3/uL NRBC Abs Auto 0.000 0.0-0.012 X10*3/uL Comprehensive Gallion. Panel Fa st Reviewed date:08/28/2023 04:51:01 PM Interpretation: Performing Lab:[facility], [address] [place] [id number] Notes/Report: Sodium 142 135-145 mmol/L Potassium 3.9 3.3-5.1 mmol/L Chloride 103 96-108 mmol/L Carbon Dioxide 28 22-29 mmol/L Anion Gap 15 12-20 Blood Urea Nitrogen 18 9-16 mg/dL Creatinine 0.94 0.5-1.4 mg/dL Estimated Glomerular Filt Rate 57 NOTE: For -[place] individuals, multiply the result by 1.210. Chronic Kidney Disease: Estimated GFR < 60 mL/min/1.73m2 Severe Kidney Disease: Estimated GFR < 15 mL/min/1.73m2 Glucose Fasting 106 60-99 mg/dL A fasting glucose from 100-125 mg/dl is considered impaired (pre-diabetes). Calcium 9.8 8.4-10.2 mg/dL Bilirubin Total 0.6 0.0-1.0 mg/dL Aspartate Amino Transferase 16 5-31 U/L Alanine Aminotransferase 9 0-31 U/L Total Protein 8.1 6.5-8.0 g/dL Albumin Level 4.1 3.5-5.0 g/dL Alkaline Phosphatase 83 39-117 U/L Lipid Panel Reviewed date:08/28/2023 12:39:20 PM Interpretation: Performing Lab:[facility], [address] [place] [phone] Notes/Report: Triglycerides 89 <150 mg/dL Desirable Triglyceride: less than 150 mg/dL Borderline High Triglyceride 150-199 mg/dL High Triglyceride: 200-499 mg/dL Very High Triglyceride: greater than or equal to 5OO mg/dL Cholesterol 223 <200 mg/dL Desirable Cholesterol: less than 200 mg/dL Borderline High Cholesterol: 200-239 mg/dL High Cholesterol: greater than 239 mg/dL LDL Cholesterol Calculated 153 <100 mg/dL Desirable LDL: less than 100 mg/dL Near Optimal/Above Optimal LDL: 110-129 mg/dL Borderline High LDL: 130-159 mg/dL High LDL: 160-189 mg/dL Very High LDL: greater than or equal to 190 mg/dL HDL Cholesterol 53 >40 mg/dL Desirable HDL: greater than 40 mg/dL Note: This HDL assay may give artificially low results in patients with liver disease. Hemoglobin A1c Reviewed date:08/28/2023 12:33:12 PM Interpretation: Performing Lab:[facility], [address] [place] [phone] Notes/Report: Hemoglobin A1c % 5.2 <6.0 % Hemoglobin A1C Reference Range Adults: 4.8 - 6.0 % Non diabetic: < 6.0 % Goal: < 7.0 % Additional Action Suggested: > 8.0 % Note: Hemoglobin A1c results are invalid for patients with abnormal amounts of HbF. Blood transfusions may impact the HbA1c concentration in the patient sample. Estimated Average Glucose 103 eAG = Estimated average glucose which is %A1C expressed as average glucose, using the formula of the P9J-Mejfqje Average Glucose study (ADAG), Diabetes Care, Vol.31,#8, Jan. 2007 MM tomosynthesis diagnostic BI Reviewed date:12/19/2023 05:01:49 PM Interpretation: Performing Lab: Notes/Report: [address] [place] [address] Mammography Report Signed Patient: Jacqueline Purcell MR#: [id number] : 1940 Acct:[id number] Age/Sex: 83 / F ADM Date: 11/10/23 Loc: HO.MAMMO Attending Dr: Jeffrey Knott MD Ordering Physician: Jeffrey Knott MD Results: 3.12MProbably Benign Finding - 12 month F/U Suggested Date of Service: 11/10/23 Follow Up: 12 month diagnos tic follow up Procedure(s): MM tomosynthesis diagnostic BI Accession Number(s): [id number] cc: Jeffrey Knott MD EXAMINATION: MM DIAGNOSTIC DIGITAL BREAST TOMOSYNTHESIS, BILATERAL CLINICAL INFORMATION: Six-month right breast calcification follow-up. Status post left breast lumpectomy. Patient due for bilateral screening. COMPARISON: Mammography: 04/25/2023, 10/17/2022 (BI-RADS 0), 10/13/2022, 10/23/2020, and dating back to 2016. TECHNIQUE: Digital breast tomosynthesis is performed in both the craniocaudal and mediolateral oblique views along with computer-aided detection (CAD). Synthesized 2D images are generated from the tomosynthesis. In addition, 2-D spot magnification views were obtained in the CC x2, and ML x3 projections. FINDINGS: The breasts are heterogeneously dense, which may obscure small masses (ACR BI-RADS breast composition Category c). Magnification views demonstrate 3 groups of distinct right breast calcifications: -A group in the anterior upper outer quadrant (labeled group 1) is present with extremely fine punctate and minimally linear grouped calcifications, not appreciably changed from the prior exams and remain probably benign. -A similar group which is slightly more extensive is present in the mid upper right breast (labeled grouped 2), adjacent to a large dystrophic appearing calcification, also not significantly changed from the prior exams and remain probably benign. -An upper outer linear grouped in the mid one third of the right breast (labeled grouped 3) has a more classic benign appearance and is also probably benign and unchanged. -A fourth group (labeled 4) just medial to the bifurcation of the calcified vessel was present in retrospect but extremely subtle and show no aggressive changes. The right breast demonstrates no developing mass, or area of architectural distortion. There are vascular calcifications. There are skin lesions in the inferior posterior right breast. The left breast demonstrates stable post lumpectomy changes upper outer quadrant. There are vascular and dystrophic macrocalcifications. No evidence of recurrent disease. There are surgical clips in the left axilla. No suspicious calcifications, developing masses, or new developing regions of architectural distortion. Mild trabecular thickening from treatment related changes is stable. The dense parenchymal pattern is stable. MM/MM tomosynthesis diagnostic BI IMPRESSION: -Benign findings both breasts not significantly changed from prior studies. No findings suspicious for malignancy. -4 groups of calcifications in the right breast are unchanged and suitable for one-year diagnostic follow-up magnification views. ASSESSMENT: BI-RADS BI-RADS 3 - Probably benign finding(s) - 12 month follow-up suggested RECOMMENDATION: 12 month diagnostic follow up Results were provided to the patient at time of visit by the technologist. This patient's information was entered into a reminder system with a target due date for their next mammogram. Dictated By: Avi Mckinney MD Signed By: <Electronically signed by Avi Mckinney MD in OV> 11/10/23 1433 DD/ 1430 TD/TT: Credit Processor: REASON FOR REFERRAL No Information MEDICATIONS Medication SIG (Take, Route, Frequency, Duration) Notes Start Date End Date Status LORazepam 0.5 MG as directed Oral Twice a as needed for 30 days 02/12/2024 Active Indomethacin 50 MG 1 capsule with food or milk Orally Three times a day for 10 days 03/08/2021 Not-Taking Synthroid 75 MCG TAKE 1 TABLET BY MOUTH EVERY DAY IN THE MORNING ON EMPTY STOMACH Orally Once a day for 90 days Active Cyclobenzaprine HCl 10 MG TAKE 1 TABLET BY MOUTH EVERY DAY AT BEDTIME NEEDED FOR 30 DAYS ORALLY ONCE A DAY Orally Once a day for 90 days Active Betamethasone Dipropionate Aug 0.05 % APPLY TO AFFECTED AREA EVERY DAY for 50 Active Losartan Potassium 100 MG TAKE 1 TABLET BY MOUTH EVERY DAY Orally Once a day for 90 days Active Diprolene AF 0.05 % 1 application to affected area Externally Once a day for 30 days 07/17/2018 Not-Taking Omeprazole 20 MG 1 capsule Orally Once a day for 30 day(s) Active PARoxetine HCl 10 MG 1 tablet in the morning Orally Once a day for 30 day(s) 12/30/2016 Not-Taking Metoprolol Succinate ER 50 MG TAKE 1 TABLET BY MOUTH EVERY DAY FOR 90 DAYS Active amLODIPine Besylate 5 MG TAKE 1 TABLET B Y MOUTH EVERY DAY FOR 90 DAYS for 90 Active hydroCHLOROthiazide 12.5 MG 1 capsule in the morning Orally Once a day for 30 Not-Taking IMMUNIZATIONS Vaccine Route Administration Date Status Comme nts Flu Vaccine IM Intramuscular 02/21/2011 Administered Flu Vaccine IM Intramuscular 04/03/2012 Administered Flu Vaccine IM Intramuscular 02/26/2013 Administered PPSV23 (Pnemovax) Unknown 05/08/2010 Administered Shingles IM Intramuscular 06/24/2013 Administered Flu Vaccine IM Intramuscular 04/15/2014 Administered zFluzone Quadrivalent IM Intramuscular 05/04/2015 Administered PPSV23 (Pnemovax) IM Intramuscular 05/11/2015 Administered Fluarix Quadrivalent IM Intramuscular 03/28/2016 Administe red Prevnar 13 IM Intramuscular 06/13/2016 Administered Fluarix Quadrivalent IM Intramuscular 03/09/2017 Administe red Fluarix Quadrivalent IM Intramuscular 04/09/2018 Administe red Shingrix Unknown 06/11/2018 Administered [facility] Shingrix IM Intramuscular 10/09/2018 Administered pt was given the vaccine at [facility] in [facility]. Influenza High Dose IM Intramuscular 04/01/2019 Administer ed Influenza High Dose IM Intramuscular 02/28/2020 Administer ed PPSV23 (Pnemovax) IM Intramuscular 05/25/2020 Administered SARS-COV-2 Pfizer Unknown 08/17/2020 Administered SARS-COV-2 Pfizer Unknown 09/07/2020 Administered Influenza High Dose IM Intramuscular 03/08/2021 Administer ed SARS-COV-2 Pfizer Unknown 06/06/2021 Administered Influenza High Dose IM Intramuscular 03/28/2022 Administer ed SARS-COV-2 Pfizer Unknown 04/01/2022 [address] [facility] Influenza High Dose IM Intramuscular 03/17/2023 Administer ed Influenza High Dose IM Intramuscular 03/14/2024 Administer ed SOCIAL HISTORY Tobacco Use: Social History Observation Description Date Details (start date - stop date) Former Smoker NA - NA Sex Assigned At : Social History Observation Description Sex Assigned At Unknown Tobacco Use/Smoking Question Answer Notes Patient is a former smoker How long has it been since y ou last smoked? > 10 years Additional Findings: Tobacco Non-User Fo rmer smoker, currently using no form of tobacco Alcohol Screen Question Answer Notes Did you have a drink containing alcohol in the p ast year? No Points 0 Interpretation Negative PROBLEMS Problem Type ICD Code Onset Dates Problem Status W/U Status Risk SNOMED Code Notes Problem Breast cancer, unspecified (239.3) Active confirmed Breast cancer (184987877) Problem Elevated BUN (R79.9) Active confirmed 784616008 Problem Anxiety (F41.9) Active confirmed 010913 02 Problem Primary insomnia (F51.01) Active confirmed 8934381 Problem Other specified menopausal and perimenopausal disorders (N95.8) Active confirmed 157030009 Problem Osteopenia (M85.80) Active confirmed 446810769 Problem Essential hypertension (I10) Active confirmed 22877645 Problem Acquired hypothyroidism (E03.9) Active confirmed 801684466 Problem Prediabetes (R73.09) Active confirmed 9587160 Problem Non morbid obesity due to excess calories (E66.09) Active confirmed 703633206 Problem History of lumpectomy of left breast (Z98.89) Active confirmed 729909404 Problem 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) Active confirmed 008303296 Problem Sciatica of left side (M54.32) Active confirmed 84962971 Problem History of left breast cancer (Z85.3) Active confirmed Personal histor y of primary malignant neoplasm of breast (878929626) Problem Acute gout of left foot, unspecified cause (M10.9) Active confirmed 2669370453273082 Problem Arthritis, low back (M47.819) Active confirmed 699851183 VITAL SIGNS Blood pressure diastolic 68 mm Hg 03/14/2024 Height 59.5 in 03/14/2024 Blood pressure systolic 170 mm Hg 03/14/2024 Weight 180 lbs 09/12/2023 BMI 35.74 kg/m2 09/12/2023 Encounters Encounter Location Date Provider Diagnosis Jeffrey Knott MD [address] [place] [id number] 09/12/2023 Jeffrey Knott Anxiety F41.9 ; Essential hypertension I10 ; Prediabetes R73.09 and Acquired hypothyroidism E03.9 Jeffrey Knott MD [address] [place] [id number] 08/28/2023 Jeffrey Knott Essential hypertensi on I10 ; Acquired hypothyroidism E03.9 and Elevated BUN R79.9 Jeffrey Knott MD [address] [place] [id number] 03/14/2024 Jeffrey Knott Essential hypertensi on I10 ; Primary insomnia F51.01 and Encounter for immunization Z23 Jeffrey Knott MD [address] [place] [id number] 10/06/2023 Jeffrey Knott Anxiety F41.9 Jeffrey Knott MD [address] [place] [id number] 02/12/2024 Jeffrey Knott Anxiety F41.9 Jeffrey Knott MD [address] [place] [id number] 03/18/2024 Jeffrey Knott MD [address] [place] [id number] 06/07/2024 Jeffrey Knott MD [address] [place] [id number] 06/11/2024 Jeffrey Knott MD [address] [id number] 07/02/2024 Jeffrey Kntot ASSESSMENTS Encounter Date Diagnosis Assessment Notes Treatment Notes Treatment Clinical Notes 09/12/2023 Anxiety (ICD-10 - F41.9) stable, will continue current regiment 09/12/2023 Essential hypertension (ICD-10 - I10) stable, will contiue current regiment 08/28/2023 Essential hypertension (ICD-10 - I10) 08/28/2023 Acquired hypothyroidism (ICD-10 - E03.9) 03/14/2024 Primary insomnia (ICD-10 - F51.01) does well with taking an ativan every now and then 03/14/2024 Essential hypertension (ICD-10 - I10) slightly high today but followed by nephrology 10/06/2023 Anxiety (ICD-10 - F41.9) 02/12/2024 Anxiety (ICD-10 - F41.9) 09/12/2023 Prediabetes (ICD-10 - R73.09) stable, no need for medication at this time 08/28/2023 Elevated BUN (ICD-10 - R79.9) 03/14/2024 Encounter for immunization (ICD-10 - Z23) 09/12/2023 Acquired hypothyroidism (ICD-10 - E03.9) stable, will continue current regiment PLAN OF TREATMENT Pending Test Test Name Order Date Electrocardiogram (EKG) 07/25/2019 Electrocardiogram (EKG) 05/11/2015 Electrocardiogram (EKG) 06/30/2016 Electrocardiogram (EKG) 07/06/2017 MAMMOGRAM DIGITAL BILATERAL DIAGNO 08/30 CT lumbar spine w con 03/29/2021 MM screening mammo BI 09/29/2020 US pelvic and transvaginal 08/30/2022 US pelvic and transvaginal 04/13/2021 Future Test Test Name Order Date BONE DENSITY DEXA 02/16/2022 US pelvic and transvaginal 04/22/2022 Next Appt Details Provider Name:Jeffrey Smith ier, 09/12/2024 07:00:00 AM, [address] [place] [address], [address], [phone], Provider Name:Jeffrey Smith ier, 09/19/2024 11:00:00 AM, [address] [place] [address], [place] [address], [place], [place], [phone], Insurance Providers Payer Name Payer Address Payer Phone Subscriber Number Group Number Insured Name Patient Relationship to Insured Coverage Start Date Coverage End Date MEDICARE NHIC [address] [place] [address] [id number] Jacqueline Purcell Self - patient is the insured [employer] [address] [place], [place] [id number] [phone] [id number] Jacqueline Purcell Self - patient is the insured MEDICAL (GENERAL) HISTORY Medical History History ICD Code breast cancer hematuria work up neg has lump in lt jaw that was biopsied thi s year 05/04/2009 Colonoscopy Abnormal bone density 07/2015 - repeat 2 years bun elevation with diuretic Surgical History Surgery Date(Month/Year) Left breast lumpectomy 2007
[2024-07-02 14:29] LABS: Anion Gap 13 (12-20); Blood Urea Nitrogen 19 mg/dL (9-16); Calcium 9.4 mg/dL (8.4-10.2); Carbon Dioxide 25 mmol/L (22-29); Chloride 107 mmol/L (96-108); Estimated Glomerular Filt Rate > 60; Potassium 3.9 mmol/L (3.3-5.1); Sodium 141 mmol/L (135-145)
== END 2024-07-02 11:16 | disposition home or self-care (01) ==
LOC: HO.WFDLDS 11:15
PROVIDERS: Visit Provider Internal Medicine Nephrology
DX: I10 Essential (primary) hypertension (principal)
CPT/HCPCS: 36415; 80051; 82310; 82565; 84520

== ENCOUNTER 2024-09-16 10:24 | Outpatient (REF) | payer MEDICARE, SELFPAY ==
[2024-09-16 10:27] LABS: MANUAL DIFF FLAG NO
[2024-09-16 11:19] LABS: Appearance Urine Hazy; Basophils Absolute Auto 0.1 X10*3/uL (0.0-0.2); Basophils Percent Auto 0.6 % (0-2); Color Urine Yellow; Eosinophils Absolute Auto 0.2 X10*3/uL (0.0-0.4); Eosinophils Percent Auto 1.9 % (0-4); Glucose Urine UA Negative (Negative); Hematocrit 41.4 % (37.0-47.0); Hemoglobin 13.5 g/dl (12.0-16.0); Imm Gran Abs Auto 0.02 X10*3/uL (0.00-0.03); Imm Gran Pct Auto 0.3 % (0.0-0.4); Leukocyte Esterase Urine Small (1+) (Negative); Lymphocytes Percent Auto 24.9 % (20-40); Mean Corpuscular HGB Conc 32.6 g/dl (31.0-35.0); Mean Corpuscular Hemoglobin 31.6 pg (27.0-33.0); Monocytes Absolute Auto 0.6 X10*3/uL (0.1-1.2); Neutrophils Absolute Auto 5.1 x10*3/uL (2.0-8.3); Neutrophils Percent Auto 64.3 % (45-73); Nitrite Urine Negative (Negative); Platelet Count 196 X10*3/uL (160-400); Red Blood Count 4.27 X10*6/uL (4.20-5.50); Red Cell Distribution Width 12.7 % (11.0-16.0); Specific Gravity - Urine 1.025 (1.005-1.025); UMIC TRIGGER UACC YES; Urine Blood Trace (Negative); Urine Ketones Negative (Negative); Urine Protein 30 (1+) mg/dL (Neg-Trace); White Blood Count 7.9 X10*3/uL (4.8-10.8)
[2024-09-16 11:25] LABS: Creatinine Urine 177.46 mg/dL; Microalbum/Creatinine Ratio Ur 184.8 ug/mg cr (<30)
[2024-09-16 11:32] LABS: Estimated Average Glucose 103 mg/dL; Hemoglobin A1C 118.8433 umol/L; Hemoglobin A1c % 5.2 % (<6.0); Total Hemoglobin (HGBA1C) 3574.7035 umol/L
[2024-09-16 11:54] LABS: Alanine Aminotransferase 10 U/L (0-31); Albumin Level 4.1 g/dL (3.5-5.0); Alkaline Phosphatase 66 U/L (39-117); Anion Gap 12 (12-20); Aspartate Amino Transferase 19 U/L (5-31); Bilirubin Total 0.4 mg/dL (0.0-1.0); Blood Urea Nitrogen 17 mg/dL (9-16); Calcium 9.6 mg/dL (8.4-10.2); Carbon Dioxide 26 mmol/L (22-29); Chloride 109 mmol/L (96-108); Cholesterol 226 mg/dL (<200); Estimated Glomerular Filt Rate 49; Glucose Fasting 93 mg/dL (60-99); HDL Cholesterol 54 mg/dL (>40); LDL Cholesterol Calculated 148 mg/dL (<100); Potassium 4.1 mmol/L (3.3-5.1); Sodium 143 mmol/L (135-145); TSH reflex Free T4 25.45 uIU/mL (0.32-4.0); Total Protein 7.6 g/dL (6.5-8.0); Triglycerides 120 mg/dL (<150)
[2024-09-16 12:24] LABS: Bacteria Urine 2+ (None Seen); Hyaline Casts Urine 0-2 /LPF (0-2); UACC Culture Trigger YES
[2024-09-16 13:12] LABS: Free T4 (Free Thyroxine) 0.73 ng/dL (0.71-1.85)
== END 2024-09-16 10:25 | disposition home or self-care (01) ==
LOC: HO.LNP 10:24
PROVIDERS: Visit Provider Internal Medicine
DX: I10 Essential (primary) hypertension (principal); R73.03 Prediabetes; E03.9 Hypothyroidism, unspecified; R79.9 Abnormal finding of blood chemistry, unspecified
CPT/HCPCS: 80053; 80061; 81001; 82043; 82570; 83036; 84439; 84443; 85025; 87086

== ENCOUNTER 2024-11-22 11:07 | Outpatient (REF) | payer MEDICARE, SELFPAY ==
--- OUTSIDE RECORDS SUMMARY | 2024-11-22 12:02 | XMS_ITS | Clinical Summary ---
Author Organization [facility] Address [address] [place] [address] Phone Care Team Providers Care Program Manager Environmental Planning Name Role Phone Jeffrey Knott MD Primary Care Provider [phone] Allergies Active Allergy Reactions Criticality Noted Date Comments Lisinopril Other (see comments) 10/07/2020 Medications amLODIPine (NORVASC) 2.5 MG tablet Take 1 tablet by mouth 1 (one) time each day Active cholecalciferol (VITAMIN D-3) 25 MCG (1000 UT) capsule Take 2 capsules by mouth 1 (one) time each day Active LORazepam (ATIVAN) 0.5 MG tablet Take 1 tablet by mouth 1 (one) time each day Active metoprolol succinate XL (TOPROL-XL) 25 MG 24 hr tablet Take 1 tablet by mouth 1 (one) time each day Active omeprazole (PriLOSEC) [address] capsule Take 1 capsule by mouth 1 (one) time each day Active losartan (COZAAR) 100 MG tablet TAKE 1 TABLET BY MOUTH EVERY DAY 90 tablet 4 06/23/2021 Active Synthroid 75 MCG tablet Take 1 tablet by mouth 1 (one) time each day 10/11/2022 Active Active Problems Problem Noted Date Diagnosed Date Benign essential hypertension 10/07/2020 Immunizations Immunization Administration Dates Next Due Pneumococcal Polysaccharide 07/27/2011 Family History Medical History Relation Comments Dementia Father Diabetes Mother Hypertension Mother Relation Status Comments Father Mother Social History Tobacco Use Types Packs/Day Years Used Date Smoking Tobacco: Never Smokeless Tobacco: Never Tobacco Cessation:Counseling Given: Not Answered Alcohol Use Standard Drinks/Week Comments No 0 (1 standard drink = 0.6 oz pur e alcohol) Comments Unknown Sex and Gender Information Value Date Recorded Sex Assigned at Not on file Legal Sex Female 5:09 PM EST Gender Identity Not on file Sexual Orientation Not on file Last Filed Vital Signs Vital Sign Reading Time Taken Comments Blood Pressure 140/90 11/23/2022 2:27 PM EDT Pulse 67 11/23/2022 2:27 PM EDT Temperature - - Respiratory Rate - - Oxygen Saturation 95% 01/30/2019 12:00 PM EDT Inhaled Oxygen Concentration - - Weight 81.7 kg (180 lb 3.2 oz) 11/23/2022 2:27 P M EDT Height 152.4 cm (5') 03/04/2020 12:00 PM EDT Body Mass Index 35.19 03/04/2020 12:00 PM EDT Plan of Treatment Health Maintenance Due Date Last Done Comments Pneumococcal Vaccine: 50+ Ye ars (2 of 2 - PCV) 07/27/2012 07/27/2011 Influenza Vaccine (Season Ended) 2025 Pneumococcal Vaccine: Peds ( 0 to 5 Years) and At-Risk Patients (6 to 49 Years) Discontinued 07/27/2011 Hepatitis B Vaccine Aged Out No longe r eligible based on patient's age to complete this topic Insurance [facility] Medicare [facility] Medicare Care Teams Program Manager Environmental Planning Relationship Specialty Start Date End Date Jeffrey Knott MD [address] [place] [address] [address] [place], [place] PCP - General 07/06/20
[2024-11-22 12:45] LABS: TSH reflex Free T4 11.64 uIU/mL (0.32-4.0)
[2024-11-22 13:22] LABS: Free T4 (Free Thyroxine) 0.94 ng/dL (0.71-1.85)
== END 2024-11-22 11:08 | disposition home or self-care (01) ==
LOC: HO.LNP 11:07
PROVIDERS: Visit Provider Internal Medicine
DX: E03.9 Hypothyroidism, unspecified (principal)
CPT/HCPCS: 84439; 84443

== ENCOUNTER 2025-01-24 15:11 | Outpatient (REF) | payer MEDICARE, SELFPAY ==
--- OUTSIDE RECORDS SUMMARY | 2025-01-24 15:14 | XMS_ITS | Clinical Summary ---
Author Organization [facility] Address [address] [place] [address] Phone Care Team Providers Care Automatic Bow Maker Machine Tender Name Role Phone Jeffrey Knott MD Primary Care Provider Allergies Active Allergy Reactions Criticality Noted Date [...] 2 - PCV) 07/27/2012 07/27/2011 Influenza Vaccine (#1) 2025 Pneumococcal Vaccine: Peds ( 0 to 5 Years) and At-Risk Patients (6 to 49 Years) Discontinued 07/27/2011 Hepatitis B Vaccine Aged Out No longe r eligible based on patient's age to complete this topic Insurance [facility] Medicare [facility] Medicare Care Teams Automatic Bow Maker Machine Tender Relationship Specialty Start Date End Date Jeffrey Knott MD [address] [place] [address] [address] [place] [address] PCP - General 07/06/20
== END 2025-01-24 15:12 | disposition home or self-care (01) ==
LOC: HO.LNP 15:11
PROVIDERS: Visit Provider Internal Medicine
DX: E03.9 Hypothyroidism, unspecified (principal)
CPT/HCPCS: 84443